=== PATIENT | male | born 1970 | race Hispanic/Latino ===

== ENCOUNTER 2017-02-20 20:42 | Emergency (ER) | payer OTHER ==
[~2017-02-20] VITALS: Ht 172.7 cm; Wt 109.1 kg
[2017-02-20 21:04] VITALS: BP 146/92; PULSE 74; RESP 16; O2SAT 96
--- NOTE | 2017-02-20 21:20 | ED.REPORT ---
HPI-Eye Problem Date of Service Feb 20, 2017 ED Provider: Ron Addison MD Pt is a 46 y/o male with a history of diabetes who presents to the ED c/o blood in his left eye onset 1999 today. He states he was going to bed when he noticed a shadow in his vision and saw blood in his eye. Additional symptoms include pain on the L side of his forehead. He denies blurry vision, eye pain, fever, cough, neck pain, or any other symptoms. He states he wears reading glasses, but does not wear contact lenses. Pt had some teeth pulled on 02/18/17 that left his face slightly swollen. Nursing Notes Stated Complaint: BLOOD IN LEFT EYE Chief Complaint: Eye Nursing Notes Reviewed: Yes Allergies: Coded Allergies: No Known Allergies (Verified Allergy, Unknown, 02/20/17) No Active Prescriptions or Reported Meds General Time Seen by MD: 21:19 Chief Complaint Left eye affected Hx Obtained From: Patient Arrived By: Walk-in Sudden in Onset?: Yes Onset Occurred: 1 - 4 hours ago Location: : Eye left Related History: Denies: Contact lens use, Recent eye bleed, Recent eye trauma Recent Healthcare: No recent doctor visit, No recent hospitalization Similar Sx Previous: No Past Medical History Past Medical History Reports: Diabetes mellitus Past Surgical History Knee and wrist pain Smoking History Current Some Day Smoker Social History Alcohol Use: Denies alcohol use Drug Use: Denies drug use Other Social History: Good social support, Ambulatory Status Independent Review of Systems Blood in L eye Pain on L side of forehead Constitutional: Denies: Fever Eyes: Denies: Blurred bilateral, Eye pain bilateral Complete sys rev & neg: except as marked. Respiratory: Denies: Non-productive cough, Prod cough, clear Musculoskeletal: Denies: Neck pain Physical Exam Initial Vital Signs Vital Signs (First) Date Time Temp Pulse Resp B/P Pulse Ox O2 Delivery O2 Flow Rate FiO2 02/20/17 21:04 36.2 74 16 146/92 96 Room Air Initial VS: Reviewed Neck: Supple, Full range of motion Respiratory: No respiratory distress Extremities: Vascular intact, Neuro intact, No swelling, No tenderness Skin: Warm, Dry, No cyanosis Neurologic: Alert, Oriented, Nonfocal Psychiatric: Mood/affect normal, Behavior normal, Normal thought content Head / Eyes: Normocephalic, PERRL, No corneal abrasion No flare No foreign body Anterior chamber clear General/Constitutional: Awake, Alert, No acute distress Respiratory / Chest: Atraumatic, Breath sounds NL, Breath sounds = bilat, No respiratory distress Cardiovascular: Heart rate NL, Regular rhythm, Heart sounds NL Procedures Slit Lamp Exam Time: 21:24 Procedure Performed by: ED physician Which Eye: Left Eyelid / Conjunctiva / Sclera: Eyelid(s) normal Cornea/Ant Chamber/Iris/Lens: Cornea normal, Ant chamber normal Vitreous / Retina / Optic Nerv: Retina normal, Optic nerve normal Re-Eval/Medical Decision Med Decision/Clinical Course The gentleman to prescription should of the "blood in the eye" was more of a description of what it looked like as he cast his gaze upward. Looking in the mirror at his own eye he saw no blood there. As I examine him his eye examination is normal. Slit lamp examination is normal as is funduscopic examination. Perhaps he is seeing a floater or some other vitreous abnormality. The portion of the retina that I can see is normal. I recommended ophthalmologic follow-up tomorrow for more detailed funduscopic examination. Source of Hx: Old records Counseled Regarding: Diagnosis, Lab results, Need for follow-up, When/why to return to ED Discharge & Departure Primary Impression: Vision disturbance Disposition: Home Discharge Condition All VS Reviewed: Yes Condition: Stable Additional Instructions: Thank you for entrusting us with your care today. Your examination was reassuring. There is no dangerous cause for your symptoms at this time. Call acid washer operator, Dr. Oxana Manuel, tomorrow for a recheck. Please return to the emergency department for any new or worsening conditions including any vision loss, eye pain, dizziness, or weakness. Tank Builder, Dr. Oxana Manuel Referrals: NOPCP (PCP) Oxana Manuel MD Scribe Attestation Portions of this note were transcribed by Cintia Cordova. I, Dr. Addison, personally performed the history, physical exam and medical decision-making; I reviewed and confirmed the accuracy of the information in the transcribed note. copies to: Oxana Manuel MD, Kirk H MD Feb 20, 2017 21:20 Cintia Cordova Feb 20, 2017 21:32
[2017-02-20] MEDS ORDERED: Fluorescein 0.6 mg Ophthalmic Strip ONE (21:22)
[2017-02-20] MEDS ORDERED: 0.9% Sodium Chloride Inhalation Solution ONE (21:22)
[2017-02-20] MEDS ORDERED: Tetracaine 0.5% 4 mL Ophthalmic Solution ONE (21:23)
[2017-02-20 22:15] VITALS: BP 146/92; PULSE 74; RESP 16; O2SAT 96
== END 2017-02-20 22:13 | disposition home or self-care (01) ==
LOC: SED 20:42
DX: H53.9 Unspecified visual disturbance (principal); E11.9 Type 2 diabetes mellitus without complications; F17.200 Nicotine dependence, unspecified, uncomplicated